=== PATIENT | male | born 1980 | race Caucasian/White ===

== ENCOUNTER 2017-02-26 08:17 | Emergency (ER) | payer BC ==
[~2017-02-26 08:17] MED LIST: NO MEDICATIONS; NORCO 7.5-3251 EACH PO
[2017-02-26] MEDS ORDERED: IBUPROFEN200 M3 PO (08:29)
[2017-02-26] MEDS ORDERED: CYCLOBENZAPRINE10 M1 PO (08:29)
[2017-02-26] MEDS ORDERED: BENADRYL25 M3 PO (08:30)
[2017-02-26] MEDS ORDERED: PREDNISONE20 M1 PO (08:45)
[2017-07-31] MEDS ORDERED: ALLEGRA ALLERG180 M1 PO (07:38)
== END 2017-02-26 09:01 ==
LOC: EDMED 08:17
DX: L50.0 Allergic urticaria (principal); F17.200 Nicotine dependence, unspecified, uncomplicated
CPT/HCPCS: J7512